=== PATIENT | female | born 1995 | race Asian ===

== ENCOUNTER 2019-07-31 19:08 | Emergency (ER) | payer BC ==
[~2019-07-31] VITALS: Ht 165.1 cm; Wt 85.9 kg
--- NOTE | 2019-07-31 19:48 | NUR ---
Pt c/o more of flu-like symptoms but no fever. Has not had vaginal discharge for several days. Pt also c/o lower right back pn but also not for several days. Pt. has pn with percussion to lower right back.
[2019-07-31] MEDS ORDERED: normal saline 1000ML IV soln IV ONE (20:40)
[2019-07-31] MEDS ORDERED: acetaminophen 325mg tablet PO ONE (20:40)
[2019-07-31 21:37] LABS: BASOPHILS % (AUTO) 0.6 % (0-1); EOSINOPHILS % (AUTO) 0.2 % (0-6); HEMATOCRIT 37.5 % (35.0-45.0); HEMOGLOBIN 12.1 g/dl (12.0-16.0); LYMPHOCYTES # (AUTO) 1.8 X10'3 (1.1-4.8); MEAN CORPUSCULAR HEMOGLOBIN 26.8 PG (27.0-31.0); MEAN CORPUSCULAR HGB CONC 32.4 g/dL (33.0-36.5); MEAN CORPUSCULAR VOLUME 82.7 FL (78-98); MEAN PLATELET VOLUME 7.7 FL (7.4-10.4); MONOCYTES # (AUTO) 0.4 X10'3 (0-0.9); MONOCYTES % (AUTO) 7.7 % (2-12); NEUTROPHILS # (AUTO) 3.2 X10'3 (1.8-7.7); NEUTROPHILS % (AUTO) 58.5 % (42-75); PLATELET COUNT 197 X10'3 (140-440); RED BLOOD COUNT 4.53 X10'6 (4.20-5.60); RED CELL DISTRIBUTION WIDTH 13.7 % (11.5-14.5); WHITE BLOOD COUNT 5.5 X10'3 (4.5-11.0)
[2019-07-31 21:47] LABS: PARTIAL THROMBOPLASTIN TIME 29 SECONDS (22-32)
[2019-07-31 21:50] LABS: ALANINE AMINOTRANSFERASE 49 U/L (12-78); ALBUMIN 3.4 G/DL (3.4-5.0); ALBUMIN/GLOBULIN RATIO 0.9 (1.1-1.5); ALKALINE PHOSPHATASE 87 IU/L (46-116); ANION GAP 10 (8-16); ASPARTATE AMINO TRANSFERASE 51 U/L (10-37); BILIRUBIN,TOTAL 0.6 MG/DL (0.1-1.0); BLOOD UREA NITROGEN 6 MG/DL (7-18); BUN/CREATININE RATIO 6.3 (6.6-38.0); CALCIUM 8.9 MG/DL (8.5-10.1); CHLORIDE 105 MMOL/L (99-107); CREATININE 0.95 MG/DL (0.40-0.90); GLUCOSE 125 MG/DL (70-104); MAGNESIUM 1.9 MG/DL (1.5-2.4); POTASSIUM 3.7 MMOL/L (3.5-5.1); SODIUM 140 MMOL/L (135-145); TOTAL CARBON DIOXIDE 24.6 MMOL/L (24-32); TOTAL PROTEIN 7.4 G/DL (6.4-8.2); eGFR 72 ML/MIN
[2019-07-31 21:57] LABS: URINE HCG NEGATIVE (NEG)
[2019-07-31] MEDS ORDERED: METR-159 PO (22:04)
[2019-07-31] MEDS ORDERED: ONDA8TAB6 PO (22:04)
[2019-07-31 22:42] LABS: CLARITY,URINE SLIGHTLY CLOUDY (Clear); COLOR,URINE ORANGE (Yellow)
[2019-07-31 23:35] LABS: UA COLLECTION TYPE CLN CATCH MIDSTREAM
[2019-07-31 23:43] LABS: BACTERIA,URINE 3+ /HPF (Neg); RBC,URINE NONE SEEN /HPF (0-2); SQUAMOUS EPITHELIAL CELL,UR MANY /LPF (FEW)
[2019-07-31 23:44] LABS: MUCUS STRANDS MANY /LPF (Neg)
[2019-08-01] MEDS ORDERED: SULF1TAB49 PO (00:37)
[2019-08-01 01:09] VITALS: BP 110/72
== END 2019-08-01 01:10 | disposition home or self-care (01) ==
LOC: ER 19:09
DX: N89.8 Other specified noninflammatory disorders of vagina (principal); R50.9 Fever, unspecified; N39.0 Urinary tract infection, site not specified; R11.10 Vomiting, unspecified; K59.00 Constipation, unspecified; Z91.030 Bee allergy status; Z79.2 Long term (current) use of antibiotics; Z79.899 Other long term (current) drug therapy
CPT/HCPCS: 36415; 71045; 80053; 81001; 81025; 83605; 83735; 84145; 85025; 85610; 85730; 87040; 87210; 87491; 87502; 87503; 87591; 93005; 96360; 99285; J7030; U0003